=== PATIENT | male | born 1980 ===

== ENCOUNTER 2019-08-26 08:27 | Day surgery (SDC) | payer OTHER ==
[~2019-08-26] VITALS: Ht 185.4 cm; Wt 99.8 kg
[2019-08-26] VITALS (10 sets, daily range): BP systolic 127–146; BP diastolic 63–97
[~2019-08-26 08:27] MED LIST: ceFAZolin 1gm IVPB IVPB ONE; ceFAZolin sod 1gm in D5W 55ml IVPB ONE; celeBREX 200mg Cap **SURGERY PATIENTS ONLY ORAL ONE; oxyCONTIN 20mg tab ORAL ONE; oxyCONTIN 20mg tab PO ONE
[2019-08-26] MEDS ORDERED: IBUPROFEN200 M2 ORAL (08:49)
--- NOTE | 2019-08-26 08:54 | Pre-Procedure Note/Attestation ---
Pre-Procedure Note/Attestation Complete Prior to Procedure Planned Procedure: right Procedure Narrative: rt knee scope, lateral meniscectomy Indications for Procedure Pre-Operative Diagnosis: rt knee lateral meniscus tear Attestation I attest that I discussed the nature of the procedure; its benefits; risks and complications; and alternatives (and the risks and benefits of such alternatives ), prior to the procedure, with the patient (or the patient's legal field representatives director). I attest that, if there was a reasonable possibility of needing a blood transfusion, the patient (or the patient's legal field representatives director) was given the [facility] standardized written summary, pursuant to the [place] Blood Safety Act ([place] Health and Safety Code # 1645, as amended). I attest that I re-evaluated the patient just prior to the surgery and that there has been no change in the patient's H&P, except as documented below:none Haider Canseco MD Aug 26, 2019 08:53
[2019-08-26] MEDS ORDERED: [UNRECOGNIZED DRUG - OTHER] PO (08:56)
[2019-08-26] MEDS ORDERED: oxyCONTIN 20mg tab ORAL ONE (09:08)
[2019-08-26] MEDS ORDERED: celeBREX 200mg Cap **SURGERY PATIENTS ONLY ORAL ONE (09:08)
--- NOTE | 2019-08-26 09:31 | Anethesia Preoperative Eval ---
Anesthesia Pre-op PMH/ROS General Date of Evaluation: Aug 26, 2019 Anesthesiologist: Case ASA Score: ASA 2 Mallampati Score Class I : Soft palate, uvula, fauces, pillars visible Class II: Soft palate, uvula, fauces visible Class III: Soft palate, base of uvula visible Class IV: Only hard plate visible Mallampati Classification: Class III Surgeon: Ajith Diagnosis: Right knee pain Surgical Procedure: right knee arthroscopy Anesthesia History: none Family History: no anesthesia problems Allergies: Coded Allergies: No Known Allergies (Unverified , 08/26/19) Medications: see eMAR Patient NPO?: Yes NPO Date: Aug 25, 2019 NPO Time: 00:00 Past Medical History Cardiovascular: Reports: HTN; Denies: CAD, [place], valve dz, arrhythmia, other Pulmonary: Denies: asthma, COPD, JANE, other Gastrointestinal/Genitourinary: Denies: GERD, CRI, ESRD, other Neurologic/Psychiatric: Denies: dementia, CVA, depression/anxiety, TIA, other Endocrine: Denies: DM, hypothyroidism, steroids, other HEENT: Denies: cataract (L), cataract (R), glaucoma, [place] (L), [place] (R), other Hematology/Immune: Denies: anemia, DVT, bleeding disorder, other Musculoskeletal/Integumentary: Reports: other - gout; Denies: OA, RA, DJD, DDD, edema PSxH Narrative: bilateral lasik Anesthesia Pre-op Phys. Exam Physician Exam Last Vital Signs Date Time Temp Pulse Resp B/P (MAP) Pulse Ox O2 Delivery O2 Flow Rate FiO2 08/26/19 09:04 Room Air 08/26/19 08:57 97.6 75 18 140/97 99 Constitutional: NAD Cardiovascular: RRR Respiratory: CTA Airway Exam Mallampati Score: Class III MO: full Neck: short, obese ROM: limited Anesthesia Pre-op A/P Labs see chart Risk Assessment & Plan Assessment: ASA II Plan: GA Status Change Before Surgery: No Pre-Antibiotics Drug: Jenny Linder MD Aug 26, 2019 09:31
[2019-08-26] MEDS ORDERED: LR 1000ml ONE (10:59)
[2019-08-26] MEDS ORDERED: NS Irrig 4000ml IRRIG ONE (10:59)
[2019-08-26] MEDS ORDERED: Propofol 200mg/20ml IV ONE (11:01)
[2019-08-26] MEDS ORDERED: fentaNYL 100 mcg/2 mL IV ONE (11:01)
[2019-08-26] MEDS ORDERED: Midazolam 2mg/2ml Inj ONE (11:01)
[2019-08-26] MEDS ORDERED: Lidocaine 1% MPF 10mg/ml 5ml ONE (11:01)
[2019-08-26] MEDS ORDERED: Ropivacaine 5mg/ml Vial 30ml INJ ONE (11:04)
[2019-08-26] MEDS ORDERED: LR 1000ml 1,000 ML IVLG SCH (11:20)
[2019-08-26] MEDS ORDERED: fentaNYL 100 mcg/2 mL IV PRN (11:30)
[2019-08-26] MEDS ORDERED: Tylenol #3 tab (300mg/30mg) ORAL PRN (11:30)
[2019-08-26] MEDS ORDERED: LORazepam Inj 2mg/ml 1ml IV PRN (11:30)
[2019-08-26] MEDS ORDERED: Hydromorphone 0.5mg/0.5ml inj IVP PRN (11:30)
[2019-08-26] MEDS ORDERED: Ketorolac 30mg Inj IV PRN (11:30)
[2019-08-26] MEDS ORDERED: Midazolam 2mg/2ml Inj IVP PRN (11:30)
[2019-08-26] MEDS ORDERED: HYDROcodone/Acetamin 5/325 tab ORAL PRN (11:30)
[2019-08-26] MEDS ORDERED: Metoclopramide 10mg/2ml Inj IVP PRN (11:30)
[2019-08-26] MEDS ORDERED: HYDROmorphone 1mg/ml Carpuject SUBQ PRN (11:30)
[2019-08-26] MEDS ORDERED: D5 1/2NS 1,000 ML IV SCH (11:30)
[2019-08-26] MEDS ORDERED: DiphenhydrAMINE 50mg/ml Inj IVP PRN (11:30)
--- NOTE | 2019-08-26 11:58 | Brief Operative Note ---
Immediate Post Operative Note Operative Note Chief Complaint: rt knee pain Pre-op Diagnosis: rt knee lateral meniscus tear Procedure: rt knee scope, lateral meniscectomy and debridement of Ca crystals Post-op Diagnosis: same as pre-op Findings: consistent w/pre-op dx studies Surgeon: md chelsie Tube Blower: rosie macedo Anesthesiologist: md agueda Anesthesia: general Specimen: yes Complications: none Condition: stable Fluids: ns Estimated Blood Loss: minimal Drains: none Implant(s) used?: No Haider Canseco MD Aug 26, 2019 11:58
--- NOTE | 2019-08-26 12:10 | Immediate Post-Op Evaluation ---
Immediate Post-Op Evalulation Immediate Post-Op Evalulation Procedure: Right knee arthroscopy Date of Evaluation: Aug 26, 2019 Time of Evaluation: 12:12 IV Fluids: 600 Blood Products: 0 Estimated Blood Loss: min Urinary Output: 0 Blood Pressure Systolic: 130 Blood Pressure Diastolic: 65 Pulse Rate: 76 Respiratory Rate: 16 O2 Sat by Pulse Oximetry: 99 Temperature (Fahrenheit): 97.1 Pain Score (1-10): 0 Nausea: No Vomiting: No Complications 0 Patient Status: awake, reacts, patent, none Hydration Status: adequate Drug: Ancef 2g Given Within 1 Hr of Incision: Yes Jenny Yang MD Aug 26, 2019 12:10
--- NOTE | 2019-08-26 12:11 | 48 Hour Post Anesthesia Eval ---
Post Anesthesia Evaluation Procedure: Right knee arthroscopy Date of Evaluation: Aug 26, 2019 Airway: patent Nausea: No Vomiting: No Hydration Status: adequate Cardiopulmonary Status: at baseline Mental Status/LOC: patient returned to baseline Post-Anesthesia Complications: 0 Jenny Yang MD Aug 26, 2019 12:11
--- NOTE | 2019-08-26 16:30 | Operative Note - Dictated ---
DATE OF OPERATION: 08/26/2019 PREOPERATIVE DIAGNOSIS: Right knee lateral meniscus tearing. POSTOPERATIVE DIAGNOSES: 1. Right knee posterior horn lateral meniscus tearing involving 20% of lateral meniscus. 2. Right knee extensive crystal precipitation on the articular cartilage in the meniscus consistent with calcium pyrophosphate crystals. PROCEDURE: 1. Right knee arthroscopy and extensive intra-articular shaving. 2. Right knee partial and lateral meniscectomy involving 20% of the posterior horn of the lateral meniscus. 3. Right knee extensive synovectomy with biopsy of the precipitated crystals and sent to pathology for evaluation. SURGEON: Haider Canseco M.D. GAS ADJUSTER: Annette Vegas PA-C. Pump Oiler was present during the actual operative portion of the case and was important and essential part of the operation. During the operation, the assistant professor of life sciences held and operated the arthroscopic camera for visualization, assisted by manipulating the leg to help with visualization, and helped with essential parts of the repair process as necessary such as operating surgical instruments under surgeon supervision, suture management, and wound closures. ANESTHESIOLOGIST: Jenny Willoughby M.D. ANESTHESIA: General LMA anesthesia. ESTIMATED BLOOD LOSS: Less than 20 mL. TOURNIQUET TIME: 25 minutes. COMPLICATIONS: None. SURGICAL INDICATION: Patient is a 38-year-old male who sustained the above injury to his Knee. The patient was treated non-operative initially, but this did not alleviate the patients symptoms. Therefore, after discussing all non-surgical and surgical options, and discussing all foreseeable risk and benefits of surgery, the patient opted for surgical treatment as described above. PATIENT POSITIONING: Patient was brought to the operating room table and placed supine. All pressure points were well padded. General Anesthesia was induced and a well padded tourniquet was placed on the thigh. The lateral post was placed and positioned to allow for opening of the medial compartment of the knee without placing pressure over the fibular head. Patients entire leg was prepped and draped in the usual sterile fashion. Time out was performed and preop abx was given and after exsanguinating the lower extremity, the tourniquet was inflated to 275 mm of mercury. EXAMINATION OF THE KNEE UNDER ANESTHESIA: Before prepping and draping the knee and while the patient was relaxed under general anesthesia, the knee was examined for ROM, and anterior and posterior, medial and lateral, posterolateral, and posteromedial instability. Pivot shift testing was performed. There was no evidence of loss of motion or instability and the pivot shift testing was negative. PORTAL PLACEMENT: The lateral portal was placed with the knee flexed to 90 degrees at the level of inferior border of the patella in line with the lateral border of the patella. A cm skin incision was made with an eleven blade, and using a blunt obturator, the capsule was gently penetrated. Sterile saline solution was then infused inside the knee with the aid of a pump set at 35 mm mercury pressure. Under direct visualization, placement of the medial portal was preliminary judged using a spinal needle, and it was subsequently established using the same technique as the lateral portal. Care was given not to injure the cutaneous branches of the medial Saphenous nerve or the subcutaneous veins. DIAGNOSTIC ARTHROSCOPY: The suprapatellar patellar pouch was visualized. There was extensive crystal precipitation in the suprapatellar pouch as well as throughout the knee. The medial and lateral patellar facets and trochlear groove articular cartilage was visualized. There was extensive crystal precipitation on the cartilage underneath the patella as well as in the trochlear groove. There was no significant chondral damage. The medial plica shelf and the corresponding medial femoral condyle articular cartilage were visualized. There was no significantly thickening of the medial plica shelf and there were no kissing? lesion over the medial femoral condyle. The lateral gutter and the posterolateral corner of the knee were visualized. There were no loose bodies, and the popliteus tendon and other structures of the posterolateral corner of the knee were intact intra-articularly. At this point, the knee was placed in the figure of four position and the lateral compartment was entered. The lateral femoral condyle, lateral tibial plateau, and the anterior, body, and the posterior horn of the lateral meniscus were visualized and probed. The articular surfaces were intact and devoid of articular cartilage damage. There was a free edge tear of the posterior horn lateral meniscus involving 20% lateral meniscus. There was also evidence of calcium deposit within the meniscus consistent with calcium pyrophosphate crystals. The knee was then placed at 90 degree and the ACL and PCL were visualized and probed. The ACL was completely intact on visualization and probing, and it had excellent tension. The PCL was completely intact on visualization and probing and it had excellent tension. The medial compartment was then entered and the medial femoral condyle, medial tibial plateau, and the anterior, body, and the posterior horn of the medial meniscus were visualized and probed. There was extensive crystalline precipitation on the articular cartilage throughout the medial and lateral compartment. The medial meniscus was completely intact both on its undersurface and on the top. The medial gutter was visualized. There was no evidence of defect or loose fragments. The scope was then brought back to the patella femoral compartment. OPERATIVE ARTHROSCOPY: At this point, all loose debris and fragments were removed with the use of suction motorized shaver. Specific attention was given to assure all visible loose fragments were irrigated out of the knee joint with pump inflow and cannula outflow system. At this point, care was given to the crystal precipitation using a grasper, multiple biopsies of this crystal along with the articular cartilage was taken to be sent to pathology for further evaluation and microscopic diagnosis. For lateral meniscectomy: At this point, attention was given to the lateral meniscus. Using combination of baskets and rambo, the torn portion of the lateral meniscus was removed. Attention was given to remove all displaced and unstable portion of the lateral meniscus while maintaining as much of the functional portion of the meniscus as possible. Approximately, 20% of the posterior horn of the meniscus was removed in this fashion. The transition between the meniscectomy portion and intact portion of the meniscus was smoothed out with combination of small baskets and rambo. Excellent transition zone was obtained in this fashion. CONDITION AT DISCHARGE FROM OPERATING ROOM: The knee was irrigated with copious amount of normal saline at the end of the procedure. The scope was removed and the water was drained. The skin edges were re-approximated and sterile dressing was applied. All lap count and instrument counts were correct. Patient tolerated the procedure well without complications and was taken to the recovery room in stable conditions. Haider Canseco M.D. DR: RUBI JOB#: [id number] CC:
== END 2019-08-26 13:40 | disposition home or self-care (01) ==
LOC: SUR 08:27
DX: S83.281A Other tear of lateral meniscus, current injury, right knee, initial encounter (principal); X58.XXXA Exposure to other specified factors, initial encounter; Y92.9 Unspecified place or not applicable; I10 Essential (primary) hypertension; E66.9 Obesity, unspecified; Z68.29 Body mass index [BMI] 29.0-29.9, adult
CPT/HCPCS: 29877; 29881; J0690; J2250; J2704; J2795; J3010; J7120; 94003; 94150